=== PATIENT | male | born 1965 | race Caucasian/White ===

== ENCOUNTER 2019-08-19 13:19 | Emergency (ER) | payer MEDICAID ==
[~2019-08-19] VITALS: Ht 172.7 cm; Wt 70.0 kg
[~2019-08-19 13:19] MED LIST: HYDR-4383 PO
[2019-08-19 13:24] VITALS: BP 141/78
[2019-08-19] MEDS ORDERED: DOXY100C2 PO (15:27)
== END 2019-08-19 16:42 | disposition home or self-care (01) ==
LOC: ER 13:19
DX: R05 Cough (principal); R53.83 Other fatigue; R06.2 Wheezing; G89.29 Other chronic pain; Z88.5 Allergy status to narcotic agent; Z79.2 Long term (current) use of antibiotics
CPT/HCPCS: 71045; 99283

== ENCOUNTER 2019-08-31 20:06 | Emergency (ER) | payer MEDICAID ==
[~2019-08-31] VITALS: Ht 167.6 cm; Wt 68.2 kg
[2019-08-31 20:07] VITALS: BP 167/92
[2019-08-31] MEDS ORDERED: INHA1INH2 (20:58)
[2019-08-31] MEDS ORDERED: PRED20TA PO (20:58)
[2019-08-31] MEDS ORDERED: PROM5SYR2 PO (20:58)
== END 2019-09-01 | disposition home or self-care (01) ==
LOC: ER 09-01 02:10
DX: R05 Cough (principal); R06.2 Wheezing; F17.200 Nicotine dependence, unspecified, uncomplicated; G89.29 Other chronic pain; Z88.5 Allergy status to narcotic agent; Z79.899 Other long term (current) drug therapy
CPT/HCPCS: 99283

== ENCOUNTER → 2019-09-19 | Outpatient (CLI) | payer MEDICAID ==
[~2019-09-19] VITALS: Ht 165.1 cm; Wt 70.3 kg
[~2019-09-19] MED LIST changes: +INHA1INH2; +PRED20TA PO; +PROM5SYR2 PO; +albuterol 2.5 MG/3 ML nebule NEB PRN
== END | disposition home or self-care (01) ==
LOC: RT 08:42
PROVIDERS: ATTEND Nurse Practitioner Family
DX: J44.9 Chronic obstructive pulmonary disease, unspecified (principal); R05 Cough
CPT/HCPCS: 94060; 94760